=== PATIENT | female | born 1950 | race Caucasian/White ===

== ENCOUNTER 2018-09-06 11:49 | Outpatient (CLI) | payer MEDICARE, BC ==
--- NOTE | 2018-09-06 14:53 | CT Report ---
Reason: SCREENING FOR MALIGNANT NEOPLASM RESPIRATORY TRACT Procedure Date: 09/06/2018 Accession Number: [id number] / [id number] Procedure: CT - CHEST WO CPT Code: FULL RESULT: EXAM CT LUNG SCREEN EXAM DATE: 09/06/2018 12:03 PM. HISTORY: 68-year-old patient with greater than [id number] smoking history. The patient reports active smoking within the last 15 years. COMPARISON: None. TECHNIQUE: CT examination of the entire thorax without contrast was performed using low-dose technique. Thin section coronal, axial, sagittal and MIP axial images were obtained. In accordance with CT protocol optimization, one or more of the following dose reduction techniques were utilized for this exam: automated exposure control, adjustment of mA and/or KV based on patient size, or use of iterative reconstructive technique. FINDINGS: Nodules: Right upper lobe: 2 mm nodule image 15 series 4, subpleural nodule measuring 2 mm on image 16. Right middle lobe: 3 mm nodule on image 27. Right lower lobe: None. Left upper lobe: 2 mm nodule image 19. Fissure based 3 mm nodule image 31. Left lower lobe: None. Emphysema: Mild. Pleura: Unremarkable. Aorta: Mildly calcified. Mediastinum: Unremarkable. Coronary calcifications: Minimal. Other pulmonary findings: None. Other extrapulmonary findings: Hypodense hepatic lesion measuring 4 cm attenuates water, cyst. Smaller right inferior lobe of the liver hypodensity is too small to characterize. Marked degenerative changes at L1-L2 with sclerosis and joint space loss. IMPRESSION: Lung-RADS ASSESSMENT CATEGORY: 2 - benign appearance. Probability of malignancy: Less than 1%. RECOMMENDATION: Continue annual low-dose screening chest CT as per lung RADS guidelines. [facility]
== END 2018-09-06 11:50 | disposition home or self-care (01) ==
LOC: DI 11:49
PROVIDERS: ATTEND Family Medicine
DX: Z12.2 Encounter for screening for malignant neoplasm of respiratory organs (principal); J43.9 Emphysema, unspecified; F17.210 Nicotine dependence, cigarettes, uncomplicated
CPT/HCPCS: 71250

== ENCOUNTER 2018-09-17 12:23 | Outpatient (CLI) | payer MEDICARE, BC ==
--- NOTE | 2018-09-17 14:10 | CT Report ---
Reason: PERSONAL HISTORY OF NICOTINE DEPENDENCE Procedure Date: 09/17/2018 Accession Number: [id number] / [id number] Procedure: CT - Low Dose Lung Cancer Screen CPT Code: FULL RESULT: EXAM CT LUNG SCREEN EXAM DATE: 09/17/2018 12:57 PM. HISTORY: 68-year-old patient with 10-[id number]-oqyd smoking history. Currently smoking: No. The patient quit within the last 15 years. COMPARISON: CHEST W/O 09/06/2018 11:58 AM. TECHNIQUE: CT examination of the entire thorax without contrast was performed using low-dose technique. Thin section coronal, axial, sagittal and MIP axial images were obtained. In accordance with CT protocol optimization, one or more of the following dose reduction techniques were utilized for this exam: automated exposure control, adjustment of mA and/or KV based on patient size, or use of iterative reconstructive technique. FINDINGS: Nodules: Right upper lobe: 3 mm nodule image 38 series 4. Previously seen 2 mm nodule on prior image 15 series 4 is resolved. Stable 2 mm nodule subpleurally on image 42. New 3 mm nodule image 54. Right middle lobe: Stable 3 mm nodule image 68. Right lower lobe: None. Left upper lobe: Stable 2 mm nodule image 38. Stable fissure based nodule, 3 mm image 77. Left lower lobe: None. Emphysema: Mild. Pleura: Unremarkable. Aorta: Mildly calcified. Mediastinum: Unremarkable. Coronary calcifications: Minimal. Other pulmonary findings: Right apical lung scarring is stable. Other extrapulmonary findings: Liver cyst and hypodensity too small to characterize are redemonstrated. Osseous degenerative changes at L1-L2. IMPRESSION: Lung-RADS ASSESSMENT CATEGORY: 2 - benign appearance. Probability of malignancy: Less than 1%. RECOMMENDATION: Continue annual low-dose screening chest CT as per lung-RADS guidelines. [facility]
== END 2018-09-17 12:24 | disposition home or self-care (01) ==
LOC: DI 12:23
PROVIDERS: ATTEND Family Medicine
DX: Z12.2 Encounter for screening for malignant neoplasm of respiratory organs (principal); J43.9 Emphysema, unspecified; Z87.891 Personal history of nicotine dependence

== ENCOUNTER 2018-09-19 10:02 | Emergency (ER) | payer MEDICARE, BC ==
--- NOTE | 2018-09-19 10:30 | ED Physician Documentation ---
PD HPI LOWER EXT INJURY - Stated complaint Stated Complaint: LEG PX - Chief complaint Chief Complaint: Ext Problem - History obtained from History obtained from: Patient - History of Present Illness PD HPI LOW EXT INJURY LOCATION: Left, Knee Type of injury: Twist Timing - onset: Yesterday Timing - details: Still present Worsened by: Moving Associated symptoms: No: Weakness, Numbness Similar symptoms before: Has not had sx before - Additional information Additional information: The patient is a 68-year-old female who complains of pain in her left knee. She had noticed slight discomfort in her knee for a few days, but it became significantly worse yesterday after riding a bicycle. When getting off the bicycle she felt her knee "pop." She has experienced pain in the knee since that time, although it is somewhat better today than it was yesterday. She denies fever, numbness or weakness. She denies history of similar symptoms in the past. Review of Systems Constitutional: denies: Fever Nose: denies: Congestion Cardiac: denies: Chest pain / pressure Respiratory: denies: Dyspnea GI: denies: Abdominal Pain, Nausea, Vomiting Skin: denies: Rash Musculoskeletal: reports: Joint pain (Left knee). denies: Neck pain, Back pain Neurologic: denies: Focal weakness, Numbness PD PAST MEDICAL HISTORY - Allergies Allergies/Adverse Reactions: Allergies Allergy/AdvReac Type Severity Reaction Status Date / Time No Known Drug Allergies Allergy Verified 09/19/18 10:09 PD ED PE NORMAL - Vitals Vital signs reviewed: Yes (Borderline hypertension) - General General: Alert and oriented X 3, Well developed/nourished - HEENT HEENT: Atraumatic - Respiratory Respiratory: No respiratory distress - Derm Derm: No rash - Extremities Extremities: No edema, No calf tenderness / cord, Other (There is tenderness to palpation in the popliteal fossa of the left knee. There is no tenderness over the patella, or the medial or lateral joint lines. There is no calf tenderness. There is no ligamentous instability detected. Distal neurovascular is intact.) - Neuro Neuro: Alert and oriented X 3, No motor deficit, No sensory deficit Results - Vitals Vitals: Vital Signs - 24 hr 09/19/18 10:06 Temperature 37.0 C Heart Rate 70 Respiratory 14 Rate Blood Pressure 142/82 H O2 Saturation 98 Oxygen O2 Source Room air - Rads (name of study) left knee Radiology: Prelim report reviewed, EMP read contemporaneously, See rad report (Minimal degenerative changes along the medial patella facet.) PD MEDICAL DECISION MAKING - ED course Complexity details: reviewed results, re-evaluated patient, considered differential, d/w patient ED course: The patient's presentation is most consistent with Tamayo's cyst. X-ray of the knee reveals no acute bony abnormality or joint effusion. Treatment in the emergency department included application of a 6 inch compression wrap. I discussed with her the expected course of illness, symptomatic treatment and outpatient follow-up, as well as potentially worrisome signs or symptoms that should prompt reevaluation in the emergency department. Departure - Departure Disposition: 01 Home, Self Care Clinical Impression: Synovial cyst of popliteal space [Tamayo], left knee Condition: Stable Instructions: ED Cyst Tamayo Follow-Up: Cornelio Bell MD [Provider Admit Priv/Credential] - Comments: Use the compression wrap if it provides comfort. You can use ibuprofen, up to 800 mg 3 times daily for anti-inflammatory effect. Let pain be your guide to activity level. Follow-up with your primary physician within 2 weeks if not starting to improve. Return to the emergency department if you develop increasing pain, or otherwise worsening symptoms.
--- NOTE | 2018-09-19 11:45 | XRAY Report ---
Reason: left knee pain Procedure Date: 09/19/2018 Accession Number: [id number] / [id number] Procedure: XR - Knee 3 View LT CPT Code: FULL RESULT: EXAM: LEFT KNEE RADIOGRAPHY EXAM DATE: 09/19/2018 11:13 AM. CLINICAL HISTORY: Ground level fall, acute pain to left knee. COMPARISON: None. TECHNIQUE: 3 views. FINDINGS: Bones: Normal. No fractures or bone lesions. Joints: Marginal osteophytosis along the medial patella facet, minimal. Generally preservation of the joint spaces. No joint effusion. No subluxation. Soft Tissues: Normal. No soft tissue swelling. IMPRESSION: Minimal degenerative changes along the medial patella facet. [facility]
[2018-09-19 12:05] VITALS: BP 134/91
== END 2018-09-19 12:03 | disposition home or self-care (01) ==
LOC: ED 10:02
DX: M71.22 Synovial cyst of popliteal space [Baker], left knee (principal)
CPT/HCPCS: 99283

== ENCOUNTER 2020-03-10 08:00 | Outpatient (CLI) | payer MEDICARE, BC ==
--- NOTE | 2020-03-10 18:02 | Ultrasound Report ---
PROCEDURE: Abdomen Limited INDICATIONS: ABN CT, LIVER LESION TECHNIQUE: Real-time focused scanning was performed of the abdomen, with image documentation. COMPARISON: Prior CT chest 09/17/2018 reviewed. That study identified an ovoid radiolucency of concer n involving the right hepatic lobe. FINDINGS: The liver echotexture is diffusely hyperechoic consistent with prominent hepatic steatosis . A ovoid cyst explains the radiographic lucency within the right hepatic lobe, which had been a prio r concern. This is a simple cyst and requires no follow-up. IMPRESSION: Simple cyst produces the area of radiolucency on prior CT scanning from August 2018. No follow-up of jorge t finding is recommended. Note is made of relatively prominent hepatic steatosis involving the liver diffusely. Please evaluate clinically for source of that appearance. Reviewed by: Alok Harper MD on 03/10/2020 6:00 PM PST Approved by: Alok Harper MD on 03/10/2020 6:00 PM PST Station ID: [id number]
== END 2020-03-10 08:01 | disposition home or self-care (01) ==
LOC: DI 08:00
PROVIDERS: ATTEND Family Medicine
DX: K76.89 Other specified diseases of liver (principal); K76.0 Fatty (change of) liver, not elsewhere classified
CPT/HCPCS: 76705

== ENCOUNTER 2022-12-11 10:18 | Outpatient (CLI) | payer MEDICARE, BC ==
[2022-12-11 14:24] LABS: BASOPHILS % (AUTO) 0.4 %; HCT - HEMATOCRIT 47.8 % (37.0-47.0); HGB - HEMOGLOBIN 15.9 g/dL (12.0-16.0); LYMPHOCYTES # (AUTO) 0.7 10^3/uL (1.5-3.5); LYMPHOCYTES % (AUTO) 7.1 %; MEAN CORPUSCULAR HEMOGLOBIN 32.2 pg (27.0-31.0); MEAN CORPUSCULAR HGB CONC 33.3 g/dL (32.0-36.0); MEAN CORPUSCULAR VOLUME 96.8 fL (81.0-99.0); MEAN PLATELET VOLUME 10.9 fL (7.9-10.8); MONOCYTES # (AUTO) 0.6 10^3/uL (0.0-1.0); MONOCYTES % (AUTO) 6.5 %; NEUTROPHILS # (AUTO) 8.4 10^3/uL (1.5-6.6); NEUTROPHILS % (AUTO) 85.5 %; PLT - PLATELET COUNT 296 10^3/uL (130-450); RED BLOOD COUNT 4.94 10^6/uL (4.20-5.40); RED CELL DISTRIBUTION WIDTH 13.1 % (12.0-15.0); WHITE BLOOD COUNT 9.8 x10^3/uL (4.8-10.8)
[2022-12-11 14:47] LABS: ALBUMIN 4.4 g/dL (3.2-5.5); ALBUMIN/GLOBULIN RATIO 1.3 (1.0-2.2); BILIRUBIN,TOTAL 0.7 mg/dL (0.2-1.0); CALCIUM 9.7 mg/dL (8.5-10.3); CREATININE 0.6 mg/dL (0.6-1.3); TOTAL PROTEIN 7.8 g/dL (6.4-8.9)
== END 2022-12-11 23:59 | disposition home or self-care (01) ==
LOC: LAB.S 10:18
PROVIDERS: ATTEND Physician Assistant Medical
DX: K52.9 Noninfective gastroenteritis and colitis, unspecified (principal); R10.9 Unspecified abdominal pain
CPT/HCPCS: 36415; 80053; 85025

== ENCOUNTER 2023-02-03 09:39 | Outpatient (CLI) | payer MEDICARE, BC ==
--- NOTE | 2023-02-04 12:49 | XRAY Report ---
PROCEDURE: Foot 3 View RT INDICATIONS: RIGHT FOOT INJURY TECHNIQUE: 3 views of the foot were acquired. COMPARISON: None. FINDINGS: Bones: There is a nondisplaced fracture across the fifth metatarsal base. This likely extends to the articular surface. No posttraumatic dislocation. Mild first MTP hallux valgus. Slight flattening of the second metatarsal head. A smaller second MTP joint spur formation. No suspicious bony lesions. Soft tissues: No suspicious soft tissue calcifications or masses. IMPRESSION: 1. Nondisplaced, probably intra-articular, fifth metatarsal base fracture. 2. Flattening of the second metatarsal head suggests prior trauma or osteonecrosis with secondary min or osteoarthritic change. Reviewed by: Heide Vega MD on 02/04/2023 12:48 PM PDT Approved by: Heide Vega MD on 02/04/2023 12:48 PM PDT Station ID: [id number]
== END 2023-02-03 23:59 | disposition home or self-care (01) ==
LOC: DI.S 09:39
PROVIDERS: ATTEND Emergency Medicine
DX: S92.354A Nondisplaced fracture of fifth metatarsal bone, right foot, initial encounter for closed fracture (principal); M19.071 Primary osteoarthritis, right ankle and foot